=== PATIENT | male | born 1975 | race Caucasian/White ===

== ENCOUNTER 2022-05-03 17:53 | Inpatient (IN) ==
--- NOTE | 2022-05-03 18:26 | Emergency Department Note ---
Lower Extremity Injury HPI General Chief Complaint: Extremity Problem,Nontraumatic Stated Complaint: Leg infection Time Seen by Provider: 05/03/22 17:55 Source: patient Mode of arrival: ambulatory Limitations: no limitations History of Present Illness HPI Narrative: Narrative: 47-year-old male with a history of type 2 diabetes and hypertension presents the ER to be evaluated for lower extremity cellulitis. He was seen on the 12th at [facility] and believe he strained his groin but also had this associated rash on his lower extremity. He believes he had confusion with the ER provider and ended up having a CT scan of his abdomen pelvis which was negative and he was told to take cefixime twice a day for 10 days. He was not able to obtain the cefixime he ended up seeing his primary care provider for the next 3 days. At each of those visits he had 2 g of Rocephin he was also started on doxycycline which he has been taking. He says the pain is gone down but it is still very red this has not grown outside the upper margins of his calf. He says he had subjective fever and chills. He applied some antibiotic cream on his left ankle and had blistering start today that is why he came in. He has had no nausea or vomiting, abdominal pain, dysuria, urgency or frequency. He no longer has any groin tenderness and denies any groin rash, deformity or tenderness. He has no other acute complaints at this time. Related Data Allergies Allergy/AdvReac Type Severity Reaction Status Date / Time atorvastatin [From Lipitor] AdvReac Severe Palpitation Verified 05/03/22 17:58 s lisinopril AdvReac Severe Palpitation Verified 05/03/22 17:58 s Review of Systems ROS ROS Narrative: Narrative: All systems ED: reviewed and negative except as stated. [facility] Narrative Patient History Narrative: Narrative: Medical/Surgical/Family History All Active Problems (Updated 05/03/22 @ 19:54 by Avinash Naranjo PA-C) Cellulitis (Acute) Social History Smoking Status: Never smoker Exam Narrative Narrative: Narrative: Gen: No acute distress Eyes: PERRL, no conjunctival injection , and symmetrical lids. Sclerae non icteric HENMT: Normocephalic Atraumatic head, external nose and ears. Moist MM. CVS: +S1/S2, No murmurs or gallops. Radial pulses 2+ and equal bilat. No swelling RESP: Unlabored respiratory effort . Clear to auscultation bilaterally (CTAB). No noted wheezes rales or ronchi. MSK: Left lower extremity has significant redness, warmth to touch with the margins going up most of his legs and stopping approximately 2 to 3 inches distal to the knee. DP and PT are 2+ with good cap refill. There is blistering around the ankle. No Homans' sign. There appears to be good blood flow. There is a diabetic ulcer on the pad of his left foot. This is well callused over. There is no drainage although he does report drainage. Patient denies any rash proximal to his knee. Skin: Warm, Dry . No rashes or lesions . Cap refill less than 2. Psych: Awake, Alert, & Oriented (AAO) x3. Appropriate mood and affect . General Limitations: no limitations Course Vital Signs Vital signs: Vital Signs Temperature 97.3 F 05/03/22 17:54 Pulse Rate 94 H 05/03/22 17:54 Respiratory Rate 16 05/03/22 17:54 Blood Pressure 146/68 05/03/22 17:54 Pulse Oximetry (%) 98 05/03/22 17:54 Oxygen Delivery Method 05/03/22 17:54 Temperature 97.3 F 05/03/22 17:54 Pulse Rate 94 H 05/03/22 17:54 Respiratory Rate 16 05/03/22 17:54 Blood Pressure 146/68 05/03/22 17:54 Pulse Oximetry (%) 98 05/03/22 17:54 Oxygen Delivery Method 05/03/22 17:54 [facility] Narrative Medical decision making narrative: Narrative: Patient is afebrile at this time but does report subjective fever. His heart rate is 94, white count will be obtained if he does have a white count greater than 12 he will be SIRS positive for known infection source. Lactic acid is pending at this time. Plain films of his foot and ankle will be obtained to rule out osteomyelitis. A venous duplex ultrasound will be obtained to rule out DVT. CBC, Chem-8, hepatic panel, CBG 4 and blood cultures will also be obtained. Patient will likely need to be admitted due to outpatient antibiotic failure. CBC: Pending Chem-8: Glucose 157 otherwise unremarkable Hepatic panel: CG 4: Lactate normal, unremarkable Blood cultures: Pending X-ray foot: No evidence of osteomyelitis X-ray tib-fib: No evidence of osteomyelitis Venous duplex ultrasound: Enlarged inguinal lymph nodes, significant edema, triphasic arterial flow, no evidence of DVT I consulted Dr. Rudolph to admit the patient he said he would be glad to come down evaluate the patient. He will discuss starting antibiotics at that time. Discharge Plan Patient/Caregiver Discharge Instructions Pt seen by [facility]ER/PA only: Yes Clinical Impression: Cellulitis Patient Disposition: Xfer As Inpt ([facility]) Follow up with: Hilda Dickson ARNP [Primary Care Provider] -
[2022-05-03 18:55] LABS: POC Calcium, Ionized 1.11 (1.16-1.32); POC Creatinine 0.7 (0.6-1.2); POC Potassium 3.8 (3.3-5.1)
--- NOTE | 2022-05-03 19:27 | Ultrasound Report ---
INDICATION: concern for dvt COMPARISON: None. TECHNIQUE: Grayscale and color flow Doppler spectral imaging of the deep venous system in the left lower extremity. FINDINGS: Negative examination. No evidence for deep venous thrombosis. Negative left common femoral vein, femoral vein, popliteal vein. Posterior tibial veins and peroneal veins are negative. Greater and lesser saphenous veins are negative. There are 2 prominent left inguinal lymph nodes. These measure 3.3 x 2.1 x 1.4 cm and 2.8 x 1.7 x 1.1 cm. These have normal benign morphology IMPRESSION: Negative examination for deep venous thrombosis. Negative left lower extremity deep venous ultrasound. Interpreted and Authenticated by: Demarcus Starkey 05/03/22
--- NOTE | 2022-05-03 19:37 | XRay Report ---
INDICATION: concern for osteomyelitis TECHNIQUE: AP, oblique, lateral left foot COMPARISON: None. FINDINGS: No left foot fracture. No radiographic manifestations of osteomyelitis. There is no cortical destruction or periosteal new bone formation. There is no soft tissue gas. There is mild vascular calcification consistent with diabetes. There is mild soft tissue swelling in the left mid and forefoot. IMPRESSION: 1. Soft tissue swelling. Vascular calcifications consistent with diabetes 2. No acute abnormality. No evidence for osteomyelitis. Interpreted and Authenticated by: Demarcus Starkey 05/03/22
--- NOTE | 2022-05-03 19:38 | XRay Report ---
INDICATION: concern for osteomyelitis TECHNIQUE: AP and lateral left tibia and fibula COMPARISON: None. FINDINGS: Negative tibia and fibula. No fracture. No cortical destruction. No evidence for acute or chronic osteomyelitis. No soft tissue gas. No detectable foreign body IMPRESSION: Negative tibia and fibula Interpreted and Authenticated by: Demarcus Starkey 05/03/22
--- NOTE | 2022-05-03 20:04 | Internal Med History&Physical ---
HPI History of Present Illness Patient information: Note initiated : 05/03/22 at 7:59 pm Service Date, if different from initiated Date: [] Patient: Kale Carlos a 47 y/o M admitted on for Leg infection. Chief Complaint: [LLE swelling, erythema] Chief complaint: LLE swelling, erythema History of present illness: Mr. Carlos is a 47 year old M with a past medical history significant for diabetes mellitus type 2 and hypertension who presents to the hospital with worsening of his left lower extremity cellulitis with failure of oral antibiotic therapy. The patient states that his symptoms started on Wednesday. He went to [facility] ER after he complained of groin pain. CT abdomen pelvis was unrevealing. He was prescribed cefixime upon discharge. He followed up with his primary care physician and received 2 g of Rocephin and was also started on doxycycline. He was seen by the on-call provider the following days. He was instructed over the weekend if his left lower extremity cellulitis worsens, he were to come to the ER, which she did. The patient states that his erythema rapidly progressed and he started to notice several bullae. On presentation he was hemodynamically stable and afebrile. There is no evidence of systemic disease. The patient's labs are pending. Venous duplex was negative for DVT. The hospital service was asked admit the patient for further management and evaluation of his nonpurulent cellulitis of the left lower extremity. Review of Systems All systems: reviewed and no additional remarkable complaints except as stated Constitutional Constitutional: Present as per HPI EENT Eyes: Present as per HPI; Absent blurry vision Cardiovascular Cardiovascular: Present as per HPI; Absent chest pain, dyspnea, dyspnea on exertion, leg edema or palpatations Respiratory Respiratory: Present as per HPI; Absent cough, dyspnea, dyspnea on exertion, wheezing or stridor Gastrointestinal Gastrointestinal: Present as per HPI; Absent abdominal pain, diarrhea, dysphagia, hematemesis, melena, nausea or vomiting Musculoskeletal Musculoskeletal: Present as per HPI; Absent joint swelling, limited range of motion, muscle cramps, muscle weakness or myalgias Integumentary Integumentary: Present as per HPI and erythema; Absent new lesions, rash or wounds Neurological Neurological: Present as per HPI; Absent abnormal gait, behavioral changes, focal weakness, headache(s), loss of vision, numbness, sensory deficit or syncope Endocrine Endocrine: Absent change in body appearance, fatigue or heat intolerance Hematologic/Lymphatic Hematologic/Lymphatic: Present as per HPI PFSH PFSH All Active Problems (Updated 05/03/22 @ 20:03 by Mike Rudolph MD) Obesity (Acute) HTN (hypertension) (Acute) Brittle diabetes (Acute) Cellulitis (Acute) MEDS/ALLERGIES Home Medications and Allergies Allergies Allergy/AdvReac Type Severity Reaction Status Date / Time atorvastatin [From Lipitor] AdvReac Severe Palpitation Verified 05/03/22 17:58 s lisinopril AdvReac Severe Palpitation Verified 05/03/22 17:58 s EXAM Constitutional Vitals: Temp Pulse Resp BP Pulse Ox O2 Del Method 97.3 F 94 H 16 146/68 98 05/03/22 17:54 05/03/22 17:54 05/03/22 17:54 05/03/22 17:54 05/03/22 17:54 05/03/22 17:54 General appearance: average body habitus Head Head exam: Present atraumatic, normal inspection and normocephalic Eye Eye exam: Present EOMI, normal appearance and PERRL; Absent conjunctival injection ENT ENT exam: Present normal exam; Absent mucous membranes dry Neck Neck exam: Present full ROM; Absent lymphadenopathy Respiratory Respiratory exam: Present normal respiratory exam and CTAB; Absent decreased breath sounds, respiratory distress or wheezes Cardiovascular Cardiovascular exam: Present normal rate and rhythm and RRR; Absent JVD GI/Abdominal GI/Abdominal exam: Present normal bowel sounds and soft; Absent diminished bowel sounds, distended, guarding, mass, rebound or tenderness Neurological Exam Neurological exam: Present alert, CN II-XII intact and oriented X3 Psychiatric Psychiatric exam: Present normal affect and normal mood Skin Skin exam: Present intact and warm; Absent erythema, pallor, petechiae or rash DATA Data Completed and Pending Labs: Labs from last 24 hours 05/03/22 05/03/22 05/03/22 19:30 19:30 18:50 WBC Pending RBC Pending Hgb Pending Hct Pending POC Hct 42.0 MCV Pending MCH Pending MCHC Pending RDW Pending Plt Count Pending MPV Pending Immature Gran % (Auto) Pending Neut % (Auto) Pending Immature Gran # Pending POC VBG pH POC VBG pCO2 at Temp POC VBG pO2 POC VBG HCO3 POC VBG Total CO2 POC Venous O2 Sat POC VBG Base Excess VBG Lactic Acid POC Sodium 142 POC Potassium 3.8 POC Chloride 107 POC Total CO2 27.0 POC BUN 19 POC Creatinine 0.7 POC Glucose 157 H POC WB Ioniz Calcium 1.11 L Total Bilirubin Pending Direct Bilirubin Pending AST Pending ALT Pending Alkaline Phosphatase Pending Total Protein Pending Albumin Pending Globulin Pending 05/03/22 18:50 WBC RBC Hgb Hct POC Hct MCV MCH MCHC RDW Plt Count MPV Immature Gran % (Auto) Neut % (Auto) Immature Gran # POC VBG pH 7.38 POC VBG pCO2 at Temp 45.7 POC VBG pO2 26 POC VBG HCO3 26.8 POC VBG Total CO2 28.0 POC Venous O2 Sat 45.0 POC VBG Base Excess 2.0 VBG Lactic Acid 1.8 POC Sodium POC Potassium POC Chloride POC Total CO2 POC BUN POC Creatinine POC Glucose POC WB Ioniz Calcium Total Bilirubin Direct Bilirubin AST ALT Alkaline Phosphatase Total Protein Albumin Globulin A/P Assessment and plan (1) Cellulitis: Status: Acute (2) Brittle diabetes: Status: Acute (3) HTN (hypertension): Status: Acute (4) Obesity: Status: Acute Narrative A/P Narrative: The patient does not have evidence of systemic disease. He does have significant left lower extremity erythema, swelling with bullae. There is clear demarcation. This is likely cellulitis versus erysipelas. Underlying organisms include Staph aureus or beta-hemolytic Streptococcus. He will be covered with vancomycin and cefepime. Would recommend elevating the leg above the heart. The patient's home oral ID glycemic agents will be held and he will be started on insulin sliding scale. The patient states that his most recent hemoglobin A1c was 10.7%. Once medication reconciliation is completed, we will restart some of his home medications. Time Spent With Patient Time: Total time spent is greater than 50% in coordination of care (as documented) at patient's floor/unit and/or counseling patient: Total time spent with greater than 50% in coordination of care (as documented) at patient's floor/unit and/or counseling patient:: Greater than 70 minutes
[2022-05-03 20:14] LABS: Basophils # (Auto) 0.12 K/mcL (0.00-0.30); Eosinophils # (Auto) 0.15 K/mcL (0.00-0.70); Eosinophils % (Auto) 1.3 % (0.0-7.0); Hematocrit 43.5 % (40.1-51.0); Hemoglobin 13.7 g/dL (13.7-17.5); Lymphocytes % (Auto) 16.9 % (15.5-49.0); Mean Cell Volume 88.4 fL (80.0-100.0); Mean Corpuscular HGB Conc 31.5 g/dL (31.0-36.0); Mean Platelet Volume 10.7 fL (7.4-10.4); Monocytes # (Auto) 0.94 K/mcL (0.10-0.90); Neutrophils % (Auto) 71.1 % (38.0-78.0); Platelet Count 264 K/mcL (140-440); RBC 4.92 M/mcL (4.63-6.08); Red Cell Distribution Width 14.1 % (11.5-14.5); WBC 11.8 K/mcL (4.5-11.0)
[2022-05-03] MEDS ORDERED: ONDANSETRON 4 MG/2 ML VIAL IV PRN (20:32)
[2022-05-03] MEDS ORDERED: DEXTROSE 31 GM ORAL.SUSP PO PRN (20:32)
[2022-05-03] MEDS ORDERED: DEXTROSE 50% 50 ML VIAL IV PRN (20:32)
[2022-05-03 20:33] LABS: ALT/SGPT 21 U/L (<40); AST/SGOT 20 U/L (<40); Albumin 3.5 gm/dL (3.2-5.2); Alkaline Phosphatase 87 U/L (39-117); Bilirubin,Direct < 0.2 mg/dL (0-0.3); Bilirubin,Total 0.2 mg/dL (0.1-1.0)
[2022-05-03] MEDS: SENNOSIDES 1 TABLET PO SCH (21:52)
[2022-05-03] MEDS: VANCOMYCIN 1,500 MG in 0.9 % SODIUM CHLORIDE 500 ML IV SCH (21:52)
[2022-05-03] MEDS: DOCUSATE SODIUM 100 MG CAPSULE PO SCH (21:52)
[2022-05-03] MEDS: CEFEPIME 2 GM VIAL IV SCH (21:52)
[2022-05-03] MEDS: 0.9 % SODIUM CHLORIDE 10 ML SYRINGE IV SCH (21:52)
[2022-05-03] MEDS: INSULIN LISPRO 1 UNIT/0.01 ML UNIT SQ SCH (22:05)
[2022-05-04] MEDS: 0.9 % SODIUM CHLORIDE 10 ML SYRINGE IV SCH ×3 (05:31→20:13)
[2022-05-04 06:38] LABS: Basophils # (Auto) 0.11 K/mcL (0.00-0.30); Basophils % (Auto) 1.1 % (0.0-2.0); Eosinophils # (Auto) 0.14 K/mcL (0.00-0.70); Eosinophils % (Auto) 1.4 % (0.0-7.0); Hematocrit 41.8 % (40.1-51.0); Hemoglobin 12.8 g/dL (13.7-17.5); Lymphocytes # (Auto) 1.88 K/mcL (1.50-4.80); Lymphocytes % (Auto) 19.2 % (15.5-49.0); Mean Cell Volume 88.9 fL (80.0-100.0); Mean Corpuscular HGB Conc 30.6 g/dL (31.0-36.0); Mean Platelet Volume 9.7 fL (7.4-10.4); Monocytes # (Auto) 0.77 K/mcL (0.10-0.90); Monocytes % (Auto) 7.9 % (1.0-12.0); Neutrophils % (Auto) 67.8 % (38.0-78.0); Platelet Count 278 K/mcL (140-440); Red Cell Distribution Width 14.1 % (11.5-14.5); WBC 9.8 K/mcL (4.5-11.0)
[2022-05-04] MEDS: INSULIN LISPRO 1 UNIT/0.01 ML UNIT SQ SCH ×4 (06:45→20:07)
[2022-05-04 07:00] LABS: Blood Urea Nitrogen 13 mg/dL (6-20); Calcium 9.3 mg/dL (8.6-10.4); Carbon Dioxide 21 mmol/L (22-30); Chloride 105 mmol/L (96-108); Glomerular Filtration Rate 112; Glucose 122 mg/dL (70-105)
[2022-05-04] MEDS: CEFEPIME 2 GM VIAL IV SCH (08:18)
[2022-05-04] MEDS: VANCOMYCIN 1,500 MG in 0.9 % SODIUM CHLORIDE 500 ML IV SCH ×3 (08:18→22:20)
[2022-05-04] MEDS: ENOXAPARIN 40 MG/0.4 ML SYRINGE SQ SCH (08:18)
[2022-05-04] MEDS: DOCUSATE SODIUM 100 MG CAPSULE PO SCH ×2 (08:18→20:07)
[2022-05-04] MEDS: LOSARTAN 50 MG TABLET PO SCH (08:19)
--- NOTE | 2022-05-04 08:59 | Internal Med Progress Note ---
SUBJECTIVE Subjective Patient information: Note initiated : 05/04/22 at 8:57 am Service Date, if different from initiated Date: [] Patient: Kale Carlos 47 y/o M admitted on 05/03/22 for Leg infection. Chief Complaint: [LLE cellulitis] Principal diagnosis: Nonpurulent cellulitis Interval history: The patient was resting comfortably in bed. was present at the bedside. RN was present at the bedside. The patient complained of some chills overnight.. Constitutional Vitals: Vital Signs Temp Pulse Resp BP Pulse Ox O2 Del Method 98.1 F 86 12 134/78 100 05/04/22 07:20 05/04/22 07:20 05/04/22 07:20 05/04/22 07:20 05/04/22 07:20 05/04/22 07:20 Period Temp Pulse Resp BP Sys/Roy Pulse Ox O2 Del Method O2 Flow Rate Last 24 Hr 97.0 F-98.1 F 77-95 12-20 70-146/61-85 94-100 Room Air-Room Air Intake and Output 05/03/22 05/04/22 05/04/22 21:59 05:59 13:59 Intake Total 800 1540 Balance 800 1540 Weight 122.379 kg Intake & Output: Intake & Output 05/03/22 05/04/22 05/04/22 21:59 05:59 13:59 Intake Total 800 1540 Balance 800 1540 Weight 122.379 kg Intake: IV 500 Vancomycin 1,500 mg In Sodium 500 Chloride 0.9% 500 ml @ 333.3 mls/hr IV Q12H [facility] Rx#: [id number] Oral 800 1040 Other: Meal Breakfast Percent of Meal Consumed 100% Feeding Ability Independent # Voids 1 1 Head Head exam: Present atraumatic and normal inspection Eye Eye exam: Present normal appearance ENT ENT exam: Present mucous membranes moist, normal exam and normal external ear exam Neck Neck exam: Present normal inspection Respiratory Respiratory exam: Present normal respiratory exam and CTAB Cardiovascular Cardiovascular exam: Present normal rate and rhythm GI/Abdominal GI/Abdominal exam: Present normal bowel sounds, soft and diminished bowel sounds; Absent distended Back Exam Back exam: Present normal inspection Neurological Exam Neurological exam: Present alert and oriented X3 Skin Skin exam: Present erythema, intact and warm OBJ DATA Labs CBC & Chem 7: 05/04/22 05:40 07/18/22 05:40 Labs: Abnormal Lab Results 05/04/22 05/04/22 05/03/22 05:40 05:40 19:30 WBC 11.8 H Hgb 12.8 L MCHC 30.6 L MPV 10.7 H Immature Gran % (Auto) 2.6 H 1.7 H [place] # (Auto) 0.94 H Immature Gran # 0.25 H 0.20 H Absolute Neutrophils 8.60 H Carbon Dioxide 21 L Glucose 122 H POC Glucose POC WB Ioniz Calcium C-Reactive Protein 15.90 H Globulin 05/03/22 05/03/22 19:30 18:50 WBC Hgb MCHC MPV Immature Gran % (Auto) [place] # (Auto) Immature Gran # Absolute Neutrophils Carbon Dioxide Glucose POC Glucose 157 H POC WB Ioniz Calcium 1.11 L C-Reactive Protein Globulin 4.0 H Meds: Medications Amitriptyline HCl (Amitriptyline 25 Mg Tablet) 25 mg PO HS [facility] Dextrose (Dextrose 50% 50 Ml Vial) 0 ml IV UD PRN PRN Reason: Per Sliding Scale Diagnostic Test (Pha) (Accu-Chek 1 Each Strip) 1 each FS ACHS [facility] Last Admin: 05/04/22 06:44 Dose: 1 each Docusate Sodium (Docusate Sodium 100 Mg Capsule) 100 mg PO BID [facility] Last Admin: 05/04/22 08:18 Dose: 100 mg Enoxaparin Sodium (Enoxaparin 40 Mg/0.4 Ml Syringe) 40 mg SQ DAILY [facility] Last Admin: 05/04/22 08:18 Dose: 40 mg Glucose (Dextrose 31 Gm Oral.Susp) 15 gm PO PRN PRN PRN Reason: Hypoglycemia Vancomycin HCl 1,500 mg/ (Sodium Chloride) 500 mls @ 333.3 mls/hr IV Q12H [facility] Last Admin: 05/04/22 08:18 Dose: 333.3 mls/hr Insulin Human Lispro (Insulin Lispro 1 Unit/0.01 Ml Unit) 0 unit SQ ACHS [facility]; Protocol Last Admin: 05/04/22 06:45 Dose: Not Given Ketorolac Tromethamine (Ketorolac 30 Mg/Ml Vial) 30 mg IV Q6 [facility] Stop: 05/06/22 06:01 Losartan Potassium (Losartan 50 Mg Tablet) 50 mg PO QDAY [facility] Last Admin: 05/04/22 08:19 Dose: 50 mg Ondansetron HCl (Ondansetron 4 Mg/2 Ml Vial) 4 mg IV Q6HP PRN PRN Reason: Nausea And Vomiting Senna (Sennosides 1 Tablet) 2 tab PO HS [facility] Last Admin: 05/03/22 21:52 Dose: Not Given Sodium Chloride (0.9 % Sodium Chloride 10 Ml Syringe) 10 ml IV Q8 [facility] Last Admin: 05/04/22 05:31 Dose: 10 ml Vancomycin HCl (Vancomycin Per Pharmacy) 1 order IV UD [facility]; Protocol A/P Assessment and plan (1) Cellulitis: Status: Acute (2) Brittle diabetes: Status: Acute (3) HTN (hypertension): Status: Acute (4) Obesity: Status: Acute Narrative A/P Narrative: The patient does not have evidence of systemic disease. He does have significant left lower extremity erythema, swelling with bullae. There is clear demarcation. This is likely cellulitis versus erysipelas. Underlying organisms include Staph aureus or beta-hemolytic Streptococcus. He will be covered with vancomycin and cefepime. Would recommend elevating the leg above the heart. The patient's home oral ID glycemic agents will be held and he will be started on insulin sliding scale. The patient states that his most recent hemoglobin A1c was 10.7%. Once medication reconciliation is completed, we will restart some of his home medications. 05/04: The patient remains afebrile with a normal white blood cell count of 9.8. We will discontinue cefepime and continue vancomycin. We will clinically monitor as the area of erythema is slowly subsiding within the area of demarc ation. Time Spent With Patient Time: Total time spent is greater than 50% in coordination of care (as documented) at patient's floor/unit and/or counseling patient: Total time spent with greater than 50% in coordination of care (as documented) at patient's floor/unit and/or counseling patient:: 25 - 35 minutes
[2022-05-04] MEDS ORDERED: VANCOMYCIN PER PHARMACY IV SCH (09:00)
[2022-05-04] MEDS: KETOROLAC 30 MG/ML VIAL IV SCH ×2 (12:27→17:29)
--- NOTE | 2022-05-04 15:30 | XRay Report ---
CLINICAL INFORMATION: Pain and possible osteomyelitis COMPARISON: 05/03/2022 FINDINGS: No specific evidence of osteomyelitis or other focal osseous abnormality.. Joint spaces are normal in width and alignment. Moderate diffuse soft tissue swelling forefoot and midfoot noted IMPRESSION: Forefoot and midfoot soft tissue swelling presumably cellulitis. No specific evidence for osteomyelitis Interpreted and Authenticated by: Demarcus Zhu 05/04/22
--- NOTE | 2022-05-04 18:13 | General Surgery Consult Note ---
HPI Data of Consult Consult date: 05/04/22 Requesting physician: Mike Rudolph Primary Care Provider: Hilda Dickson Consult Narrative Patient Information: Note initiated : 05/04/22 at 5:57 pm Service Date, if different from initiated Date: [] Patient: Kale Carlos 47 y/o M admitted on 05/03/22 for Leg infection. Chief Complaint: [] Chief complaint: CSSSI, Cellulitis and lymphedema LEFT leg in setting of IDDM Reason for consult: Wound care and wound management cc:: CC: Mike Rudolph MD I reviewed notes pertaining to this patient's admission and treatment thus far. Examined patient along with Sarahi Houston RN PFSH PFSH All Active Problems Obesity (Acute) HTN (hypertension) (Acute) Brittle diabetes (Acute) Cellulitis (Acute) MEDS/ALLERGIES Home Medications and Allergies Home Medications Medication Instructions Recorded Confirmed Type amitriptyline 25 mg tablet 1 tab PO HS 05/03/22 05/03/22 History canagliflozin 300 mg tablet 1 tab PO QDAY 05/03/22 05/03/22 History (Invokana) doxycycline hyclate 100 mg capsule 1 cap PO BID 05/03/22 05/03/22 History insulin degludec 100 unit/mL (3 19 unit subcut QHS 05/03/22 05/03/22 History mL) subcutaneous pen (Tresiba FlexTouch U-100 insulin) losartan 50 mg tablet 1 tab PO QDAY 05/03/22 05/03/22 History pioglitazone 15 mg tablet 1 tab PO QDAY 05/03/22 05/03/22 History Allergies Allergy/AdvReac Type Severity Reaction Status Date / Time atorvastatin [From Lipitor] AdvReac Severe Palpitation Verified 05/03/22 17:58 s lisinopril AdvReac Severe Palpitation Verified 05/03/22 17:58 s Physical Examination Vital Signs Vital signs: Temp Pulse Resp BP Pulse Ox O2 Del Method 97.7 F 72 14 142/78 94 05/04/22 11:16 05/04/22 11:16 05/04/22 11:16 05/04/22 11:16 05/04/22 11:16 05/04/22 11:16 General physical appearance General physical exam: well developed, well nourished and no pain Eyes Eye exam: PERRL and normal ocular movement ENT ENT exam: normal pinna, normal nares, normal mucosa and no congestion Head Head exam IM: Present atraumatic and normocephalic Neck Neck exam: no masses, trachea midline and no venous distension Cardiovascular Cardiovascular exam IM: Present normal rate and rhythm Peripheral pulses: 2+: dorsalis pedis (L) and dorsalis pedis (R) Respiratory Respiratory exam: normal expansion and clear to auscultation Abdomen Abdomen: Present soft, non tender and bowel sounds Integumentary Integumentary: Present other (Resolved cellulitis of RIGHT leg. He has Lymphedema of LEFT leg and resloving cellulitis with fluid filled blisters of LEFT leg. There is Plantar DFU Stage 5 covered with thick callus.) Neurologic Neurologic: Present other (DiABETES WITH PERIPHERAL NEUROPATHY OF BOTH LOWER LIMBS.) Musculoskeletal Musculoskeletal: Present other (Examined patient in bed. Moves all 4 limbs without any restrictions. Peripheral neuropathy of both LE.) Psychiatric Psychiatric: Present oriented to time, oriented to person, oriented to place, speech is normal and memory intact Results Labs Result diagrams: 05/04/22 05:40 05/04/22 05:40 Labs: Abnormal lab results 05/03/22 05/03/22 05/03/22 Range/Units 18:50 19:30 19:30 WBC 11.8 H (4.5-11.0) K/mcL Hgb (13.7-17.5) g/dL MCHC (31.0-36.0) g/dL MPV 10.7 H (7.4-10.4) fL Immature Gran % (Auto) 1.7 H (0.0-0.5) % [place] # (Auto) 0.94 H (0.10-0.90) K/mcL Immature Gran # 0.20 H (0.00-0.05) K/mcl Absolute Neutrophils 8.60 H (1.80-8.00) K/mcL Carbon Dioxide (22-30) mmol/L Glucose (70-105) mg/dL POC Glucose 157 H (70-105) POC WB Ioniz Calcium 1.11 L (1.16-1.32) C-Reactive Protein (0.03-0.80) mg/dL Globulin 4.0 H (2.2-3.7) gm/dL 05/04/22 05/04/22 Range/Units 05:40 05:40 WBC (4.5-11.0) K/mcL Hgb 12.8 L (13.7-17.5) g/dL MCHC 30.6 L (31.0-36.0) g/dL MPV (7.4-10.4) fL Immature Gran % (Auto) 2.6 H (0.0-0.5) % [place] # (Auto) (0.10-0.90) K/mcL Immature Gran # 0.25 H (0.00-0.05) K/mcl Absolute Neutrophils (1.80-8.00) K/mcL Carbon Dioxide 21 L (22-30) mmol/L Glucose 122 H (70-105) mg/dL POC Glucose (70-105) POC WB Ioniz Calcium (1.16-1.32) C-Reactive Protein 15.90 H (0.03-0.80) mg/dL Globulin (2.2-3.7) gm/dL Diabetes panel 05/03/22 05/04/22 Range/Units 19:30 05:40 Sodium 139 (133-145) mmol/L Potassium 3.8 (3.3-5.1) mmol/L Chloride 105 (96-108) mmol/L Carbon Dioxide 21 L (22-30) mmol/L BUN 13 (6-20) mg/dL Creatinine 0.7 (0.7-1.2) mg/dL Glucose 122 H (70-105) mg/dL Calcium 9.3 (8.6-10.4) mg/dL AST 20 (<40) U/L ALT 21 (<40) U/L Alkaline Phosphatase 87 (39-117) U/L Total Protein 7.5 (5.9-8.4) gm/dL Albumin 3.5 (3.2-5.2) gm/dL Calcium panel 05/03/22 05/04/22 Range/Units 19:30 05:40 Calcium 9.3 (8.6-10.4) mg/dL Albumin 3.5 (3.2-5.2) gm/dL Pituitary panel 05/04/22 Range/Units 05:40 Sodium 139 (133-145) mmol/L Potassium 3.8 (3.3-5.1) mmol/L Chloride 105 (96-108) mmol/L Carbon Dioxide 21 L (22-30) mmol/L BUN 13 (6-20) mg/dL Creatinine 0.7 (0.7-1.2) mg/dL Glucose 122 H (70-105) mg/dL Calcium 9.3 (8.6-10.4) mg/dL Adrenal panel 05/03/22 05/04/22 Range/Units 19:30 05:40 Sodium 139 (133-145) mmol/L Potassium 3.8 (3.3-5.1) mmol/L Chloride 105 (96-108) mmol/L Carbon Dioxide 21 L (22-30) mmol/L BUN 13 (6-20) mg/dL Creatinine 0.7 (0.7-1.2) mg/dL Glucose 122 H (70-105) mg/dL Calcium 9.3 (8.6-10.4) mg/dL Total Bilirubin 0.2 (0.1-1.0) mg/dL AST 20 (<40) U/L ALT 21 (<40) U/L Alkaline Phosphatase 87 (39-117) U/L Total Protein 7.5 (5.9-8.4) gm/dL Albumin 3.5 (3.2-5.2) gm/dL All other labs normal. A/P Narrative A/P Narrative: Assessment: IDDM with peripheral neuropathy both lower limbs. CSSSI both legs. Resolved inflammation of RIGHT leg. Cellulitis and lymphedema of LEFT leg with fluid filled blisters. Improving inflammatory changes in response to local wound care and IV antibiotics. Plan: Will review X Rays and non invasive vascular studies. Will dbride LEFT leg wounds at bedside in AM tomorrow. Time Spent With Patient Time: Total time spent is greater than 50% in coordination of care (as documented) at patient's floor/unit and/or counseling patient: Total time spent with greater than 50% in coordination of care (as documented) at patient's floor/unit and/or counseling patient:: 35 - 50 minutes
[2022-05-04] MEDS: SENNOSIDES 1 TABLET PO SCH (20:08)
[2022-05-04] MEDS ORDERED: AMITRIPTYLINE 25 MG TABLET PO SCH (21:00)
[2022-05-05] MEDS: KETOROLAC 30 MG/ML VIAL IV SCH ×3 (01:54→12:31)
[2022-05-05] MEDS: 0.9 % SODIUM CHLORIDE 10 ML SYRINGE IV SCH (06:25)
[2022-05-05 06:42] LABS: Estimated Average Glucose(eAG) 229 mg/dL; Hemoglobin A1C 9.6 % Hgb (4.0-6.0)
[2022-05-05] MEDS: INSULIN LISPRO 1 UNIT/0.01 ML UNIT SQ SCH ×2 (07:04→11:35)
[2022-05-05] MEDS: LOSARTAN 50 MG TABLET PO SCH (08:27)
[2022-05-05] MEDS: ENOXAPARIN 40 MG/0.4 ML SYRINGE SQ SCH (08:27)
[2022-05-05] MEDS: DOCUSATE SODIUM 100 MG CAPSULE PO SCH (08:27)
[2022-05-05] MEDS ORDERED: VANCOMYCIN 1,500 MG in 0.9 % SODIUM CHLORIDE 500 ML IV SCH (10:00)
[2022-05-05] MEDS: VANCOMYCIN 1,500 MG in 0.9 % SODIUM CHLORIDE 500 ML IV SCH (10:05)
--- NOTE | 2022-05-05 10:55 | Discharge Summary ---
Discharge Provider Provider IMPORTANT FOLLOW-UP INFORMATION FOR PCP: 1. Follow up with wound care 2. Complete antibiotic course 3. Ongoing diabetic education 4. Close eye on non-healing plantar foot wound Patient information: Note initiated : 05/05/22 at 10:54 am Service Date, if different from initiated Date: [] Patient: Kale Carlos 47 y/o M admitted on 05/03/22 for Leg infection. Chief Complaint: [LLE swelling, erythema] Date of admission: 05/03/22 20:29 Discharge date: 05/05/22 Primary care physician: Hilda Dickson Consults: 05/03/22 Consult to Physician [CONS] Stat Comment: Consulting Provider: Mike Rudolph Reason For Exam: Physician to Consult 05/04/22 13:54 Consult to Physician [CONS] Routine Comment: Wound care Consulting Provider: Uli Olivera Reason For Exam: Physician to Consult Attending physician on discharge: Mike Klaudia COURSE Hospital Course Hospital course: The patient does not have evidence of systemic disease. He does have significant left lower extremity erythema, swelling with bullae. There is clear demarcation. This is likely cellulitis versus erysipelas. Underlying organisms include Staph aureus or beta-hemolytic Streptococcus. He will be covered with vancomycin and cefepime. Would recommend elevating the leg above the heart. The patient's home oral ID glycemic agents will be held and he will be started on insulin sliding scale. The patient states that his most recent hemoglobin A1c was 10.7%. Once medication reconciliation is completed, we will restart some of his home medications. 05/04: The patient remains afebrile with a normal white blood cell count of 9.8. We will discontinue cefepime and continue vancomycin. We will clinically monitor as the area of erythema is slowly subsiding within the area of demarcation. 05/05: The patient remains afebrile with a normal white blood cell count. His leg looks much improved. The leg was unwrapped and examined at the bedside with the RN and Dr. Olivera. There is no debridement needed at this time. He is completed 48 hours of vancomycin and will be transition to doxycycline and Augmentin for total of 10 to 14 days. He will follow-up with outpatient wound clinic. The patient and his are in agreement with the discharge plan. Interventions (wounds, diuresis, etc): Left lower leg venous status ulcer Dr. Olivera here to see pt and orders received to mist leg and wrap with adaptic, mak and jp wrap. Discharge diagnosis: Left lower extremity nonpurulent cellulitis Time Spent with Patient Time attestation: Total time spent providing and/or coordinating discharge services: Time spent: Greater than 30 minutes EXAM Constitutional Vitals: Temp Pulse Resp BP Pulse Ox O2 Del Method 97 F 62 14 124/79 95 05/05/22 07:37 05/05/22 07:37 05/05/22 07:37 05/05/22 07:37 05/05/22 07:37 05/05/22 07:37 General appearance: average body habitus Head Head exam: Present atraumatic, normal inspection and normocephalic Eye Eye exam: Present EOMI, normal appearance and PERRL; Absent conjunctival injection ENT ENT exam: Present normal exam; Absent mucous membranes dry Neck Neck exam: Present full ROM; Absent lymphadenopathy Respiratory Respiratory exam: Present normal respiratory exam and CTAB; Absent decreased breath sounds, respiratory distress or wheezes Cardiovascular Cardiovascular exam: Present normal rate and rhythm and RRR; Absent JVD GI/Abdominal GI/Abdominal exam: Present normal bowel sounds and soft; Absent diminished bowel sounds, distended, guarding, mass, rebound or tenderness Neurological Exam Neurological exam: Present alert, CN II-XII intact and oriented X3 Psychiatric Psychiatric exam: Present normal affect and normal mood Skin Skin exam: Present erythema, intact and warm; Absent pallor, petechiae or rash Discharge Data Data Completed and Pending Labs on day of discharge: Labs from last 24 hours 05/05/22 05/05/22 08:03 05:08 Hemoglobin A1c 9.6 H Estim Average Glucose 229 Vancomycin Trough 8.0 Preliminary micro results at discharge 05/03/22 19:40 Blood Culture - Preliminary Blood 05/03/22 19:30 Blood Culture - Preliminary Blood Discharge Plan Patient/Caregiver Discharge Instructions Activity: increase activity as tolerated Instructions: Cellulitis (DC) Prescriptions: New amoxicillin-pot clavulanate 875-125 mg tablet 1 tab PO BID Qty: 20 0RF Continued losartan 50 mg tablet 1 tab PO QDAY pioglitazone 15 mg tablet 1 tab PO QDAY doxycycline hyclate 100 mg capsule 1 cap PO BID amitriptyline 25 mg tablet 1 tab PO HS Invokana 300 mg tablet 1 tab PO QDAY Tresiba FlexTouch U-100 100 unit/mL (3 mL) insulin pen 19 unit subcut QHS Rx Instructions: Before bed. Follow Up Plan Follow up with: Hilda Dickson ARNP [Primary Care Provider] - Patient Disposition: Home, Self-Care Plan of Treatment: 1. Complete course of abx at home 2. F/u with outpatient wound care Rehab Potential: Good I certify that the patient requires SNF services: Yes Overall status at discharge: patient is progressing back to baseline Discharge Orders: Discharge Order (Routine); Ordered 05/05/22 Ordered By: Mike Rudolph
--- NOTE | 2022-05-05 11:16 | General Surgery Progress Note ---
SUBJECTIVE Subjective Patient information: Note initiated : 05/05/22 at 11:09 am Service Date, if different from initiated Date: [] Patient: Kale Carlos 47 y/o M admitted on 05/03/22 for Leg infection. Chief Complaint: [] Principal diagnosis: Nonpurulent cellulitis Additional PMFSH (Level 3 Only): Patient seen on rounds with Mario Sahni RN and Sarahi Houston RN. Doing well. Had an uneventful night. Constitutional Vitals: Vital Signs Temp Pulse Resp BP Pulse Ox O2 Del Method 97 F 62 14 124/79 95 05/05/22 07:37 05/05/22 07:37 05/05/22 07:37 05/05/22 07:37 05/05/22 07:37 05/05/22 07:37 Period Temp Pulse Resp BP Sys/Roy Pulse Ox O2 Del Method O2 Flow Rate Last 24 Hr 97 F-97.7 F 59-72 12-14 120-142/71-79 94-98 Room Air-Room Air Intake and Output 05/04/22 05/05/22 05/05/22 21:59 05:59 13:59 Intake Total 800 Output Total 0 Balance 800 Weight 273 lb Intake & Output: Intake & Output 05/04/22 05/05/22 05/05/22 21:59 05:59 13:59 Intake Total 800 Output Total 0 Balance 800 Weight 273 lb Intake: IV 500 Vancomycin 1,500 mg In Sodium 500 Chloride 0.9% 500 ml @ 333.3 mls/hr IV Q12H BRIGIDO Rx#: [id number] Oral 300 Output: Void Amount 0 Other: # Voids 1 0 Exam: AVSS. No changes DRAKE Cellulitis of LEFT leg has improved significantly. Wound site and left leg examined. Responded well to IV antibiotics and MIST treatment. Along with local wound care and cleansing. X Ray foot is negative for osteomyelitis. Debridement NOT needed at this time. Awaits D/C planning and F/u at wound care clinic. A/P Narrative A/P Narrative: Assessment: Satisfactory progress. OK for D/C and f/u at wound care clinic. Plan: Progress and plan reviewed with Dr. Klaudia ARECHIGA D/C planning per Hospitalist physician. Thanks. Plan of Treatment: 1. Complete course of abx at home 2. F/u with outpatient wound care Time Spent With Patient Time: Total time spent is greater than 50% in coordination of care (as documented) at patient's floor/unit and/or counseling patient:
== END 2022-05-05 12:30 | disposition home or self-care (01) | DRG 603 ==
LOC: ED 17:53 → MEDSUR 20:29
PROVIDERS: ADMIT Student in an Organized Health Care Education/Training Program; ATTEND Student in an Organized Health Care Education/Training Program